=== PATIENT | female | born 1975 | race Caucasian/White ===

== ENCOUNTER 2020-10-05 10:50 | Inpatient (IN) | payer OTHER ==
[2020-10-05] MEDS: ELECTROLYTE-148 SOLN 1,000 ML IV SCH ×2 (12:30→16:45)
[2020-10-05 12:42] VITALS: BMI 27.0
[2020-10-05] MEDS ORDERED: AMPICILLIN SODIUM 2 GM VIAL ONE (12:49)
[2020-10-05] MEDS ORDERED: OXYTOCIN 30 UNITS in 0.9% NS 30 UNIT/500 ML INFUS.BAG IVPB ONE (12:49)
[2020-10-05] MEDS ORDERED: AMPICILLIN - 2 GM in SODIUM CHLORIDE 100 ML IVPB ONE (13:00)
[2020-10-05] MEDS ORDERED: OXYTOCIN 30 UNITS in 0.9% NS 30 UNIT/500 ML INFUS.BAG IVPB SCH (13:15)
[2020-10-05] MEDS ORDERED: PCA PUMP NR ONE ×2 (15:58→22:35)
[2020-10-05] MEDS ORDERED: FENTANYL/BUPIVACAINE/NS/PF - PCEA - 50 ML DISP.SYRIN EP ONE (15:58)
[2020-10-05 16:07] LABS: HIV INTERPRETATION NEGATIVE (NEGATIVE)
[2020-10-05] MEDS ORDERED: NALOXONE HCL 0.4 MG/ML VIAL IVPUSH PRN (16:40)
[2020-10-05] MEDS ORDERED: AMPICILLIN SODIUM 1 GM VIAL ONE (16:45)
[2020-10-05] MEDS ORDERED: FENTANYL/BUPIVACAINE/NS/PF - PCEA - 50 ML DISP.SYRIN EP SCH (16:45)
[2020-10-05] MEDS: AMPICILLIN - 1 GM in SODIUM CHLORIDE 100 ML IVPB SCH ×2 (17:00→21:34)
[2020-10-05] MEDS ORDERED: OXYTOCIN 20 UNITS in 0.9% NS 20 UNIT/1,000 ML INFUS.BAG IV ONE (19:35)
[2020-10-05] MEDS ORDERED: LIDOCAINE HCL 1% PRESERVATIVE FREE - 30ML VIAL ONE (19:36)
[2020-10-05] MEDS ORDERED: BENZOCAINE 20% 57 GM BOTTLE TP PRN (20:39)
[2020-10-05] MEDS ORDERED: BENZOCAINE 28 GM HEMORRHOIDAL OINTMENT TP PRN (20:39)
[2020-10-05] MEDS ORDERED: METHYLERGONOVINE MALEATE 0.2 MG/1 ML AMP IM PRN (20:39)
[2020-10-05] MEDS ORDERED: BISACODYL 10 MG SUPP.RECT RC PRN (20:39)
[2020-10-05] MEDS ORDERED: WITCH HAZEL 50% (TUCKS) 40 PAD/JAR PAD TP PRN (20:39)
[2020-10-05] MEDS ORDERED: oxyCODONE HCL 5 MG TABLET PO PRN (20:39)
[2020-10-05] MEDS ORDERED: ACETAMINOPHEN 325 MG TABLET (FP) PO PRN (20:39)
[2020-10-05] MEDS ORDERED: OXYTOCIN 20 UNITS in 0.9% NS 20 UNIT/1,000 ML INFUS.BAG IV SCH (20:45)
[2020-10-05] MEDS ORDERED: DEXTROSE 5%-LACTATED RINGERS 1,000 ML IV SCH (20:45)
[2020-10-05] MEDS ORDERED: IBUPROFEN 600 MG TABLET (FP) PO PRN (21:53)
[2020-10-05] MEDS ORDERED: ONDANSETRON 4 MG/2 ML VIAL IVPUSH PRN (21:53)
[2020-10-05] MEDS: ACETAMINOPHEN 1000 MG/100 ML VIAL (NON FORMULARY) IVPB SCH (23:39)
[2020-10-05] MEDS: ZOLPIDEM TARTRATE 5 MG TABLET PO PRN (23:39)
[2020-10-06] MEDS: AMPICILLIN - 1 GM in SODIUM CHLORIDE 100 ML IVPB SCH (05:47)
[2020-10-06] MEDS: ACETAMINOPHEN 1000 MG/100 ML VIAL (NON FORMULARY) IVPB SCH (05:52)
[2020-10-06 08:19] LABS: BASO % 0.3 % (0-2.0); EOS % 0.2 % (0-4.5); HEMOGLOBIN 11.5 GM/dL (10.7-15.3); LYMPH % 7.5 % (8-40); MCH 31.3 pg (25.7-33.7); MCHC 33.7 g/dl (32.0-36.0); MEAN CELL VOLUME 92.7 fl (80-96); MEAN PLT VOLUME 10.3 fl (7.5-11.1); MONO % 7.9 % (3.8-10.2); NEUT % 84.1 % (42.8-82.8); PLATELET COUNT 205 K/MM3 (134-434); RBC 3.67 M/mm3 (3.60-5.2); RDW 13.4 % (11.6-15.6); WHITE BLOOD COUNT 14.8 K/mm3 (4.0-10.0)
[2020-10-06] MEDS: IBUPROFEN 600 MG TABLET (FP) PO PRN ×2 (10:03→19:35)
[2020-10-06] MEDS: PRENATAL VITAMINS W/ FOLIC ACID TABLET (FP) PO SCH (10:04)
[2020-10-06] MEDS: ZOLPIDEM TARTRATE 5 MG TABLET PO PRN (21:58)
[2020-10-06] MEDS ORDERED: SENNOSIDES/DOCUSATE COMBO (SENNA PLUS) TABLET (UD) PO PRN (22:00)
[2020-10-06 22:03] VITALS: PULSE 89
[2020-10-07 09:08] VITALS: BP 117/70; TEMP 97.8
[2020-10-07] MEDS: PRENATAL VITAMINS W/ FOLIC ACID TABLET (FP) PO SCH (10:00)
== END 2020-10-07 14:00 | disposition home or self-care (01) | DRG 560 ==
LOC: JLDR 10:50 → J3W 23:05
PROVIDERS: ADMIT Obstetrics & Gynecology; ATTEND Obstetrics & Gynecology
PROC: 10E0XZZ Delivery of Products of Conception, External Approach (ICD-10-PCS; principal; 2020-10-05)
PROC: 0W8NXZZ Division of Female Perineum, External Approach (ICD-10-PCS; 2020-10-05)
PROC: 3E033VJ Introduction of Other Hormone into Peripheral Vein, Percutaneous Approach (ICD-10-PCS; 2020-10-05)
PROC: 10907ZC Drainage of Amniotic Fluid, Therapeutic from Products of Conception, Via Natural or Artificial Opening (ICD-10-PCS; 2020-10-05)
DX: O36.63X0 Maternal care for excessive fetal growth, third trimester, not applicable or unspecified (principal); Z3A.39 39 weeks gestation of pregnancy; Z37.0 Single live birth
CPT/HCPCS: 36415; 59409; 85025; 87389; J0131

== ENCOUNTER 2023-12-20 11:09 | Inpatient (IN) | payer OTHER ==
[2023-12-20 11:21] VITALS: TEMP 98.5; BMI 25.1
[2023-12-20] MEDS ORDERED: KETOROLAC TROMETHAMINE 30 MG/1 ML VIAL ONE (13:01)
[2023-12-20] MEDS: KETOROLAC TROMETHAMINE 30 MG/1 ML VIAL IVPUSH ONE (13:09)
[2023-12-20] MEDS: METHOCARBAMOL 500 MG TABLET PO ONE (13:10)
[2023-12-20] MEDS ORDERED: METHOCARBAMOL 500 MG TABLET ONE (13:11)
[2023-12-20 13:23] LABS: BASO % 2.8 % (0-2.0); EOS % 1.5 % (0-4.5); HEMATOCRIT 45.4 % (32.4-45.2); HEMOGLOBIN 15.2 GM/dL (10.7-15.3); MCH 30.7 pg (25.7-33.7); MCHC 33.5 g/dl (32.0-36.0); MEAN CELL VOLUME 91.7 fl (80-96); MEAN PLT VOLUME 8.4 fl (7.5-11.1); NEUT % 65.7 % (42.8-82.8); PLATELET COUNT 285 10^3/uL (134-434); RBC 4.95 M/mm3 (3.60-5.2); RDW 12.5 % (11.6-15.6); WHITE BLOOD COUNT 5.3 K/mm3 (4.0-10.0)
[2023-12-20 13:47] LABS: POTASSIUM 4.3 mmol/L (3.5-5.1)
[2023-12-20 13:49] LABS: ALBUMIN 4.7 g/dl (3.4-5.0); BLOOD UREA NITROGEN 16.7 mg/dL (7-18); CALCIUM 9.4 mg/dL (8.5-10.1)
[2023-12-20 13:53] LABS: CREATININE 0.8 mg/dL (0.55-1.3)
[2023-12-20 13:54] LABS: BILIRUBIN,TOTAL 0.6 mg/dL (0.2-1)
[2023-12-20 15:01] LABS: PH,URINE 5.5 (5.0-8.0); URINE APPEARANCE CLEAR; URINE BILIRUBIN NEGATIVE (NEGATIVE); URINE COLOR YELLOW; URINE GLUCOSE (UA) NEGATIVE (NEGATIVE); URINE KETONE NEGATIVE (NEGATIVE); URINE LEUK ESTERASE NEGATIVE (NEGATIVE); URINE NITRITE NEGATIVE (NEGATIVE); URINE PROTEIN NEGATIVE (NEGATIVE); URINE UROBILINOGEN 0.2 mg/dL (0.2-1.0)
[2023-12-20] MEDS: PANTOPRAZOLE 40 MG TABLET PO ONE (20:05)
[2023-12-20] MEDS ORDERED: PANTOPRAZOLE 40 MG TABLET PO ONE (21:27)
[2023-12-20] MEDS ORDERED: predniSONE 10 MG TABLET (UD) ONE (21:28)
[2023-12-20] MEDS ORDERED: NAPROXEN 500 MG TABLET ONE (21:52)
[2023-12-20] MEDS ORDERED: ACETAMINOPHEN 500 MG TABLET (FP) ONE (21:56)
[2023-12-20 21:58] VITALS: BP 137/85; PULSE 81; RESP 19
[2023-12-20] MEDS: predniSONE 10 MG TABLET (UD) PO ONE (22:04)
[2023-12-20] MEDS: PANTOPRAZOLE 40 MG TABLET PO SCH (22:04)
[2023-12-20] MEDS: ACETAMINOPHEN 500 MG TABLET (FP) PO ONE (22:04)
[2023-12-20] MEDS: NAPROXEN 500 MG TABLET PO SCH (22:06)
== END 2023-12-21 | disposition home or self-care (01) | DRG 48 ==
LOC: JER 11:09 → JERBED 21:24
PROVIDERS: ADMIT Family Medicine; ATTEND Family Medicine
DX: G83.4 Cauda equina syndrome (principal); M51.27 Other intervertebral disc displacement, lumbosacral region; R20.0 Anesthesia of skin; R32 Unspecified urinary incontinence
CPT/HCPCS: 36415; 72131-TC; 72148-TC; 76856-TC; 80053; 81003; 85025; 87086; 99285-25